=== PATIENT | male | born 1995 | race Hispanic/Latino ===

== ENCOUNTER 2022-09-05 19:07 | Emergency (ER) | payer BC ==
[~2022-09-05] VITALS: Ht 182.9 cm; Wt 71.7 kg
[2022-09-05] MEDS: ACETAMINOPHEN 325 MG TAB PO ONE (19:41)
== END 2022-09-05 20:30 | disposition home or self-care (01) ==
LOC: ER 20:28
DX: R50.9 Fever, unspecified (principal); B34.9 Viral infection, unspecified; Z20.822 Contact with and (suspected) exposure to COVID-19
CPT/HCPCS: 99282; U0002